=== PATIENT | male | born 1985 | race Two or more races ===

== ENCOUNTER 2023-12-05 23:02 | Emergency (ER) | payer OTHER ==
[~2023-12-05] VITALS: Ht 167.6 cm; Wt 68.9 kg
[~2023-12-05 23:02] MED LIST: ULTRACET PO; ZANTAC300 MG PO; ZOFRAN4 MG PO
[2023-12-05] MEDS ORDERED: KETOROLAC TROMETHAMINE 30 MG VIAL IM STA (23:37)
[2023-12-05] MEDS ORDERED: ONDANSETRON HCL 2 MG/ML VIAL IM STA (23:37)
[2023-12-05] MEDS ORDERED: FAMOTIDINE/PF 20 MG/2 ML VIAL IV PUSH STA (23:37)
[2023-12-06 00:31] LABS: HEMOGLOBIN 15.4 g/dL (13-16.00); MEAN CELL VOLUME 83.5 fL (80.0-100.00); MEAN CORPUSCULAR HEMOGLOBIN 28.6 pg (27.00-32.0); MEAN CORPUSCULAR HGB CONC 34.2 g/dl (32.0-36.0); PLATELET COUNT 415 K/uL (150-450); RED BLOOD COUNT 5.38 M/uL (4.00-6.00); RED CELL DISTRIBUTION WIDTH 13.7 % (11.5-14.5)
[2023-12-06 00:42] LABS: CALCIUM 9.4 mg/dL (8.5-10.1); CREATININE SERUM 1.4 mg/dL (0.70-1.30); GFR 57.34; POTASSIUM 3.8 mEq/L (3.5-5.1)
[2023-12-06 00:51] LABS: PH,URINE 5.5 (5.0-8.0); URINE APPEARANCE Turbid; URINE BILIRRUBIN Small (NEGATIVE); URINE BLOOD Large; URINE COLOR Orange; URINE GLUCOSE Negative (NEGATIVE); URINE KETONE Negative (NEGATIVE); URINE LEUKOCYTE Small; URINE NITRATE Negative; URINE PROTEIN 30 (NEGATIVE)
[2023-12-06 00:55] LABS: URINE BACTERIA 54.1 uL (0.0-1933); URINE EPITHELIAL CELLS 2.4 uL (0.0-38.8); URINE WBC 90.1 uL (0.0-23.2)
[2023-12-06 01:12] LABS: URINE CAST 0.23 uL (0.0-1.40); URINE CRYSTALS MANY /HPF; URINE RBC > 10558.9 uL (0.0-20.8)
[2023-12-06] MEDS ORDERED: SODIUM CHLORIDE 0.45 % 1,000 ML IV ONE (02:30)
[2023-12-06] MEDS ORDERED: CIPROFLOXACIN IN 5 % DEXTROSE 400 MG/200 ML PIGGYBAG IV STA (03:03)
[2023-12-06 05:33] LABS: HEMOGLOBIN 14.9 g/dL (13-16.00); MEAN CELL VOLUME 84.5 fL (80.0-100.00); MEAN CORPUSCULAR HEMOGLOBIN 28.7 pg (27.00-32.0); PLATELET COUNT 371 K/uL (150-450); RED BLOOD COUNT 5.21 M/uL (4.00-6.00); RED CELL DISTRIBUTION WIDTH 13.3 % (11.5-14.5)
[2023-12-06 06:56] LABS: CALCIUM 9.2 mg/dL (8.5-10.1); CREATININE SERUM 1.39 mg/dL (0.70-1.30); GFR 57.82; POTASSIUM 4.15 mEq/L (3.5-5.1)
[2023-12-06] MEDS ORDERED: TAMS0.4C PO (08:37)
[2023-12-06] MEDS ORDERED: CIPRO500 MG PO (08:37)
[2023-12-06] MEDS ORDERED: KETO10TA2 PO (08:37)
== END 2023-12-06 09:00 ==
LOC: ER 23:04
PROVIDERS: General Practice
DX: N23 Unspecified renal colic (principal)